=== PATIENT | male | born 1975 | race Caucasian/White ===

== ENCOUNTER 2016-09-27 06:56 | Emergency (ER) | payer BC, OTHER ==
[~2016-09-27] VITALS: Ht 193 cm; Wt 108.9 kg
--- NOTE | ~2016-09-27 | EKG ---
[address] [place] [address] ELECTROCARDIOGRAM REPORT Name: HUNTER CHAVARRIA [facility] [id number] Admission: 09/27/16 Attend Phys: Discharge: 09/27/16 Date of : 71 Report #: [id number] THIS REPORT FOR: //name// [facility] ED Test Date: 2016-09-27 Test Time: 08:23:27 Pat Name: HUNTER CHAVARRIA Department: Room: Gender: Welding Technician: oJrdan DONALD : 1975 Requested By: Tashi Young Order Number: [id number] MD: Chester Hernandes Measurements Intervals [place] Rate: 66 P: 30 MO: 157 QRS: -10 QRSD: 83 T: 20 QT: 404 QTc: 424 Interpretive Statements Sinus rhythm Low voltage, precordial leads Compared to ECG 11/13/2015 19:09:34 No significant changes Electronically Signed On 09-27-2016 16:03:10 CDT by Chester Hernandes [email or web address] <ELECTRONICALLY SIGNED> By: Chester Hernandes MD, [facility] 09/27/16 1603 822 2 Chester Hernandes MD, FACC /EPI
[~2016-09-27 06:56] MED LIST: ACETAMINOPHEN325 M1 PO; ALBUTEROL INHAL17 GM IH; AMBIEN PO; ANUCORT-HC25 MG RE; ASPIRIN EC81 M1 PO; ATIVAN1 MG PO; AUGMENTIN 500-1 EACH PO; AZITHROMYCIN 2250 MG PO; AZITHROMYCIN PO; CIPROFLOXACIN500 M1; CIPROFLOXACIN500 M1 PO; CLARITIN10 M2 PO; CLONAZEPAM 1 MG1 M1 PO; DILAUDID 4 MG TA4 M1 PO; DOCUPRENE100 MG; DOXYCYCLINE 10100 M1 PO; FLEXERIL PO; FLOMAX PO; FLOMAX0.4 MG PO; GLUCOPHAGE XR500 MG; GLUCOPHAGE500 MG PO; GLUMETZA500 PO; HUMALOG100 UNIT/2; HYDROCHLOROTH12.5 MG; IBUPROFEN 600600 M1 PO; IBUPROFEN 800800 M1 PO; KEFLEX500 MG; LANTUS SUBQ; LANTUS100 UNIT/M; LORTAB 5 MG/5001 TA1 PO; LORTABELXR PO; METFORMIN HCL500 MG PO; METFORMIN PO; MIRALAX255 GM; NEXIUM40 MG PO; NOHOMEMEDICATIONS; NORCO 10-325 T1 EACH PO; NORCO 5-325 TA1 EACH PO; PENICILLIN VK500 M1 PO; PERCOCET 5-3251 EACH PO; PHENERGAN 25 MG25 M1 PO; POTASSIUM CITRATE; POTASSIUM CITRATE PO; PREDNISONE50 MG PO; PREVALITE PACKE1 PKT; PRILOSEC 20 MG20 MG PO; PRILOSEC20 MG; PROAIR HFA8.5 GM IH; RANITIDINE 150150 MG PO; SERTRALINE HCL50 MG PO; TAMSULOSIN HCL0.4 M1 PO; TAMSULOSIN HCL0.4 MG; TESSALON PERLE100 MG PO; TIZANIDINE HCL4 MG PO; TRILIPIX135 MG PO; VALIUM5 MG PO; VICODIN 5-5001 EACH PO; XANAX 1 MG TABLE1 MG PO; ZOFRAN ODT4 MG PO; ZOFRAN4 MG PO; ZOLOFT PO; ZOLOFT100 MG PO; ZOLOFT50 MG PO; ZPAK PO; [UNRECOGNIZED DRUG - REMARK]
[2016-09-27 07:33] LABS: URINE BILIRUBIN NEGATIVE (Negative); URINE BLOOD NEGATIVE (Negative); URINE COLOR YELLOW; URINE GLUCOSE-RANDOM* 3+ (Negative); URINE KETONES NEGATIVE (Negative); URINE LEUKOCYTES-REFLEX NEGATIVE (Negative); URINE PROTEIN (DIPSTICK) NEGATIVE (Negative); URINE UROBILINOGEN 0.2 E.U./dl (0.2-1.0)
[2016-09-27 07:38] LABS: ABSOLUTE NEUTROPHILS 2.9 thou/uL (1.4-8.2); BASOPHILS 1.1 % (0.0-2.0); EOSINOPHILS 3.6 % (0.0-3.0); HEMATOCRIT 44.6 % (42.0-52.0); HEMOGLOBIN 15.8 gm/dL (14.0-18.0); LYMPHOCYTES 38.6 % (24.0-44.0); MCHC 35.5 g/dL (28.0-37.0); MCV 87.5 fL (80.0-100.0); MONOCYTES 5.8 % (1.0-8.0); PLATELET COUNT 132 thou/uL (150-400); POLYS 50.9 % (36.0-66.0); RDW 12.9 % (10.5-14.5); WBC 5.7 thou/uL (4.0-11.0)
[2016-09-27 07:39] LABS: MANUAL DIFF NO
[2016-09-27 07:48] LABS: ANION GAP 8 mmol/L (7-16); BUN 7 mg/dL (7-18); CALCIUM 8.6 mg/dL (8.5-10.1); CHLORIDE 103 mmol/L (98-107); CO2 26 mmol/L (21-32); CREATININE 1.1 mg/dL (0.7-1.3); GLUCOSE 370 mg/dL (74-106); POTASSIUM 3.6 mmol/L (3.5-5.1); SODIUM 137 mmol/L (136-145)
[2016-09-27 07:57] LABS: ALBUMIN 3.6 g/dL (3.4-5.0); ALKALINE PHOSPHATASE 134 U/L (46-116); MAGNESIUM 1.9 mg/dL (1.8-2.4); NT-PRO BRAIN NAT PEPTIDE 134 pg/mL (<300); SGOT 14 U/L (15-37); SGPT 37 U/L (30-65); TOTAL BILIRUBIN 0.3 mg/dL (<0.1-1.0); TROPONIN-I < 0.04 ng/mL (<0.04-0.07)
[2016-09-27] MEDS ORDERED: ZOFRAN ODT8 MG PO (08:17)
[2016-09-27] MEDS ORDERED: TORADOL 10 MG T10 MG PO (08:17)
[2016-09-27] MEDS ORDERED: FLOMAX0.4 MG PO (08:17)
[2016-09-27] MEDS ORDERED: NORCO 5-325 TA1 EACH PO (08:17)
== END 2016-09-27 09:09 | disposition home or self-care (01) ==
LOC: ER 06:56
PROVIDERS: Emergency Medicine
DX: R10.31 Right lower quadrant pain (principal); R11.2 Nausea with vomiting, unspecified; E11.9 Type 2 diabetes mellitus without complications; F17.210 Nicotine dependence, cigarettes, uncomplicated; Z87.442 Personal history of urinary calculi; Z90.49 Acquired absence of other specified parts of digestive tract; Z90.89 Acquired absence of other organs; Z88.6 Allergy status to analgesic agent; Z79.4 Long term (current) use of insulin

== ENCOUNTER 2016-09-30 18:53 | Inpatient (IN) | payer OTHER ==
[~2016-09-30] VITALS: Ht 182.9 cm; Wt 105.2 kg
--- NOTE | ~2016-09-30 | HPC ---
[facility] [place] [address] PAIN MANAGEMENT CONSULTATION Name: HUNTER CHAVARRIA Room #: 417-I [facility] IN M.R.#: [id number] Admission: 09/30/16 Attend Phys: Alexandre Kurtz DO Discharge: 10/02/16 Date of : 71 Report #: [id number] THIS REPORT FOR: //name// CC: LYLE physician/PCP Alexandre Kurtz DATE OF SERVICE: 10/02/2016 SUBJECTIVE: The patient is a pleasant 41-year-old gentleman who was admitted to [facility] 09/20/2016 through the ER with acute onset of pain of right testicle. The patient had a prior history of renal lithiasis, had actually been in the ER for right flank pain some 3 days prior. This pain was vastly different, acute onset of pain in the right testicle without antecedent trauma. Extensive workup in the hospital has failed to reveal any treatable pathology. The patient has had A history of renal lithiasis, requiring ureteral stenting x 2 and lithotripsy x 2; history of ureteral stricture. Ultrasound of the testicle reveals the right testicle notes normal scrotal ultrasound. CT of the abdomen and pelvis notes no acute processes. Kidneys, ureters, and urinary bladder were stable with persistent 5 mm nonobstructing stone in the left kidney. Again, this is contralateral to the right testicular pain site. KUB shows nonspecific findings, normal bowel pattern without obstruction, and clips in the gallbladder fossa. Chemistry notes only hyperglycemia. EGFR is 82. White blood cell count is within normal limits at 6.2. Urinalysis does show some spilled glucose, 1+ blood, 3-10 rbc's, no wbc's, and no crystals or casts. The patient has been utilizing IV hydromorphone for pain in the hospital. The patient presents to pain clinic today as an inpatient. PHYSICAL EXAMINATION: VITAL SIGNS: He is a 183 cm tall, 105 kg gentleman. BMI is 31.5 kilograms per meter squared. Blood pressure is 121/66, pulse is 67 and afebrile. GENITOURINARY: The pain is in the right testicle. It is fairly localized. Notes the pain is exacerbated with touch and movement. Some relief with ice and opiate analgesics. No radicular pattern pain. Scrotal area exam is otherwise unremarkable other than exquisite tenderness in the right testicle. He does have tenderness over the right genitofemoral nerve. The ilioinguinal area medial and inferior to the anterior superior iliac spine on the right side is actually unremarkable. EXTREMITIES: Lower extremity strength is preserved. Physical exam is actually relatively unremarkable otherwise. NEUROLOGIC: Cranial nerves 2-12 are grossly intact. Pupils are equal and reactive to light and accommodation. Extraocular muscles are intact. [address] [address] PAIN MANAGEMENT CONSULTATION Name: HUNTER CHAVARRIA Room #: 417-I [facility] IN M.R.#: [id number] Admission: 09/30/16 Attend Phys: Alexandre Kurtz DO Discharge: 10/02/16 Date of : 71 Report #: [id number] MUSCULOSKELETAL: Gait is tandem, though he is a little cautious as movement of the right leg contacting the testicles does cause some pain. ASSESSMENT: Neuropathic pain; genitofemoral neuralgia; right testicular pain in a gentleman with diabetes, relatively poorly controlled; and history of renal lithiasis. RECOMMENDATIONS: Discussion with the patient and his today about therapeutic options. We have elected to proceed with a right genitofemoral nerve block. I have taken the liberty of giving the patient samples of Lyrica 50 mg to start 1 at night for 3 nights and then b.i.d. with subsequent prescription for 60 of the 50 mg tablet. If the nerve block does not afford ongoing relief, start the Lyrica, and I will be happy to see him in about 3-4 weeks for reevaluation. I did give him a short prescription for hydromorphone to wean as an outpatient, 2 mg tablets 1-2 tablets 3 times a day, limit 30 tablets. PROCEDURE NOTE: Right genitofemoral nerve block. DESCRIPTION OF PROCEDURE: After written informed consent was obtained, the patient was placed in supine position. Skin overlying the pubic tubercle was cleansed with alcohol. A 2 inch 25-gauge needle was then inserted right paramedian to the superior aspect of the right pubic tubercle, and in a fan-like fashion, 20 mg triamcinolone plus 3 mL of 0.5% preservative-free bupivacaine plus 3 mL of 1.5% preservative-free Xylocaine with 1:200,000 epinephrine was injected in the fan-like fashion. The needle was removed. The area was cleansed, Band-Aids applied. The patient monitored for an appropriate period of time, discharged in good and stable condition, noting significant improvement of baseline pain. In fact, noted his pain was fairly nominal, perhaps 2 on a 0-10 visual analog scale. We will see the patient back on an as-needed basis. Told to use ice to the area today. Report to the pain clinic if he develops any signs of infection, bleeding, hematuria or increased pain. <ELECTRONICALLY SIGNED> By: Caleb Maldonado DO 10/05/16 0856 [id number] [id number] Caleb Maldonado DO /daniel
--- NOTE | ~2016-09-30 | HC ---
[facility] [place] [address] CONSULTATION Name: HUNTER CHAVARRIA Room #: 417-I [facility] IN M.R.#: [id number] Admission: 09/30/16 Attend Phys: Alexandre Kurtz DO Discharge: 10/02/16 Date of : 71 Report #: [id number] THIS REPORT FOR: //name// CC: LYLE physician/PCP Alexandre Kurtz DATE OF SERVICE: 10/02/2016 SUBJECTIVE: The patient is having less pain in the right testicle, satisfactory bowel function. OBJECTIVE: Nontender in the right inguinal canal, nontender in the abdomen. LABORATORY DATA: Review of the CT scan with Radiology demonstrates no evidence of a right inguinal hernia or left inguinal hernia. Etiology of right testicular pain is unclear. ASSESSMENT: No evidence of a right inguinal hernia. PLAN: No surgical procedure indicated. Consultation with pain management today. Follow up with his long-term urologist and Robby Baca. <ELECTRONICALLY SIGNED> By: Adolfo Fountain MD, FACS 10/05/16 1720 1700 194 Adolfo Fountain MD, FACS /nt
--- NOTE | ~2016-09-30 | HC ---
[facility] [place] [address] CONSULTATION Name: HUNTER CHAVARRIA Room #: 417-I [facility] IN ..#: [id number] Admission: 09/30/16 Attend Phys: Alexandre Kurtz DO Discharge: 10/02/16 Date of : 71 Report #: [id number] THIS REPORT FOR: //name// CC: LYLE physician/PCP Alexandre Kurtz DATE OF SERVICE: 10/01/2016 HISTORY OF PRESENT ILLNESS: I have been asked to evaluate this 41-year-old male who has presented to emergency room and been hospitalized for right testicular pain. The right testicular pain began the day prior to admission around lunch time. The patient felt pain was sudden in onset, severe and gave him nausea. He had been seen in the emergency department approximately 3 days prior to that for a kidney stone which has resolved. The patient has not had similar right testicular pain of this type before. He has known right renal cyst and history of nephrolithiasis in the past. He denied hematuria and flank pain and the evaluation and concern was possibility of an inguinal hernia after urological consultation did not reveal any testicular torsion. An ultrasound did not reveal torsion either. He denies any change in gastrointestinal function. PAST MEDICAL HISTORY: Consistent with previous cholelithiasis, kidney stones, diverticulosis, GERD. PAST SURGICAL HISTORY: Tonsillectomy, laparoscopic cholecystectomy, fasciotomy right leg, crush injury, ureteral stents and left shoulder surgery. ALLERGIES: ASPIRIN and MILK. MEDICATIONS: Included ketorolac, Zofran, [place] and Flomax. SOCIAL HISTORY: The patient is , smokes on a daily basis, [id number] history of cigarette smoking, alcohol on special occasions. REVIEW OF SYSTEMS: A 10-point review of systems essentially noncontributory except for recent and acute onset of right testicular pain without dysuria, frequency or recent trauma. PHYSICAL EXAMINATION: GENERAL: Reveals a patient who is cooperative, alert. HEENT: Pupils equal, round, react to light. Extraocular movements within normal limits. NECK: Full range of motion. LUNGS: Clear to bases bilaterally. CARDIOVASCULAR: Regular rate and rhythm. ABDOMEN: Nontender. Some right testicular pain. The patient examined in the standing position, demonstrates no evidence of a hernia, right or left. [facility] [address] [place] [address] CONSULTATION Name: HUNTER CHAVARRIA Room #: 417-I [facility] IN ..#: [id number] Admission: 09/30/16 Attend Phys: Alexandre Kurtz DO Discharge: 10/02/16 Date of : 71 Report #: [id number] palpable defect in the right inguinal canal is present. NEUROLOGIC: He is oriented x 3 with bilateral motor symmetry. Review of laboratory demonstrates labs within normal limits. A CT scan of the abdomen and pelvis does not delineate any inguinal hernia, ____ tight and without evidence of fat containing mass or bowel in the right inguinal canal or the left inguinal canal. Right testis is well distended in the scrotum. By CT scan, small 1 cm hydrocele of the right testis. DIAGNOSTIC IMPRESSION: The patient does not have an acute abdomen. He does not have right inguinal hernia as the etiology or source of his right testicular pain. Recommend further urological evaluation and pain management evaluation. Thank you for allowing us to participate in his care. <ELECTRONICALLY SIGNED> By: Adolfo Fountain MD, FACS 10/05/16 1720 1645 2118 Adolfo Fountain MD, FACS /nt
[2016-09-30 18:53] VITALS: BP 147/92
[~2016-09-30 18:53] MED LIST changes: +TORADOL 10 MG T10 MG PO; +ZOFRAN ODT8 MG PO
[2016-09-30 19:49] LABS: URINE BILIRUBIN NEGATIVE (Negative); URINE BLOOD NEGATIVE (Negative); URINE COLOR YELLOW; URINE GLUCOSE-RANDOM* 3+ (Negative); URINE KETONES NEGATIVE (Negative); URINE LEUKOCYTES-REFLEX NEGATIVE (Negative); URINE PROTEIN (DIPSTICK) NEGATIVE (Negative); URINE UROBILINOGEN 0.2 E.U./dl (0.2-1.0)
[2016-09-30 21:34] LABS: ABSOLUTE NEUTROPHILS 4.1 thou/uL (1.4-8.2); EOSINOPHILS 2.3 % (0.0-3.0); HEMATOCRIT 45.4 % (42.0-52.0); HEMOGLOBIN 15.7 gm/dL (14.0-18.0); LYMPHOCYTES 34.3 % (24.0-44.0); MCH 30.8 pg (26.0-34.0); MCHC 34.6 g/dL (28.0-37.0); MONOCYTES 4.5 % (1.0-8.0); PLATELET COUNT 139 thou/uL (150-400); POLYS 57.9 % (36.0-66.0); RDW 13.1 % (10.5-14.5)
[2016-09-30 21:35] LABS: MANUAL DIFF NO
[2016-09-30 21:50] LABS: CALCIUM 8.7 mg/dL (8.5-10.1); POTASSIUM 3.5 mmol/L (3.5-5.1)
[2016-09-30 21:54] LABS: ALBUMIN 3.7 g/dL (3.4-5.0); TOTAL BILIRUBIN 0.4 mg/dL (<0.1-1.0); TOTAL PROTEIN 7.4 g/dL (6.4-8.2)
[2016-09-30] MEDS ORDERED: PRILOSEC 20 MG20 MG PO (22:03)
[2016-09-30 22:22] VITALS: BP 135/89
[2016-10-01 03:35] VITALS: BP 130/83
[2016-10-01 08:18] VITALS: BP 132/91
[2016-10-01 15:44] VITALS: BP 152/80
[2016-10-01 20:00] VITALS: BP 134/83
[2016-10-01 21:10] LABS: URINE BILIRUBIN NEGATIVE (Negative); URINE BLOOD 3+ (Negative); URINE COLOR YELLOW; URINE GLUCOSE-RANDOM* 3+ (Negative); URINE KETONES NEGATIVE (Negative); URINE LEUKOCYTES-REFLEX NEGATIVE (Negative); URINE PROTEIN (DIPSTICK) NEGATIVE (Negative); URINE UROBILINOGEN 0.2 E.U./dl (0.2-1.0)
[2016-10-01 21:21] LABS: URINE RBC 3-10 Few /HPF (0-2)
[2016-10-01 21:22] LABS: CASTS None Seen /LPF (None Seen); CRYSTALS None Seen /LPF (None Seen); SQUAMOUS 0-3 Few /LPF (0-3); URINE WBC-REFLEX None Seen /HPF (0-5)
[2016-10-02 03:16] LABS: GLYCOHEMOGLOBIN (HGB A1C) 9.5 % (4.8-5.6)
[2016-10-02 03:50] LABS: ABSOLUTE NEUTROPHILS 3.4 thou/uL (1.4-8.2); BASOPHILS 0.6 % (0.0-2.0); EOSINOPHILS 2.7 % (0.0-3.0); HEMATOCRIT 39.2 % (42.0-52.0); LYMPHOCYTES 37.6 % (24.0-44.0); MCH 31.2 pg (26.0-34.0); MCHC 34.8 g/dL (28.0-37.0); MCV 89.8 fL (80.0-100.0); MONOCYTES 4.9 % (1.0-8.0); PLATELET COUNT 117 thou/uL (150-400); POLYS 54.2 % (36.0-66.0); RBC 4.36 mil/uL (4.50-6.00); RDW 13.4 % (10.5-14.5); WBC 6.2 thou/uL (4.0-11.0)
[2016-10-02 03:56] LABS: HEMOGLOBIN 13.6 gm/dL (14.0-18.0)
[2016-10-02 03:57] LABS: MANUAL DIFF NO
[2016-10-02 03:59] LABS: CALCIUM 8.1 mg/dL (8.5-10.1); POTASSIUM 3.9 mmol/L (3.5-5.1)
[2016-10-02 04:00] VITALS: BP 121/66
[2016-10-02 07:14] VITALS: BP 131/75
[2016-10-02] MEDS ORDERED: NORCO 5-325 TA1 EACH PO (10:13)
[2016-10-02 14:19] VITALS: BP 131/75
== END 2016-10-02 15:16 | disposition home or self-care (01) | DRG 730 ==
LOC: ER 18:53 → 4E 21:06 → EROBS 21:06 → 4E 21:46
PROVIDERS: Family Medicine; Nurse Practitioner Acute Care; Physician Assistant
PROC: 3E0T33Z Introduction of Anti-inflammatory into Peripheral Nerves and Plexi, Percutaneous Approach (ICD-10-PCS; principal; 2016-10-02)
PROC: 3E0T3BZ Introduction of Anesthetic Agent into Peripheral Nerves and Plexi, Percutaneous Approach (ICD-10-PCS; principal; 2016-10-02)
DX: N50.811 Right testicular pain (principal); E11.65 Type 2 diabetes mellitus with hyperglycemia; K57.90 Diverticulosis of intestine, part unspecified, without perforation or abscess without bleeding; F17.210 Nicotine dependence, cigarettes, uncomplicated; K21.9 Gastro-esophageal reflux disease without esophagitis; M79.2 Neuralgia and neuritis, unspecified; Z91.011 Allergy to milk products; Z87.442 Personal history of urinary calculi; Z80.42 Family history of malignant neoplasm of prostate; Z79.899 Other long term (current) drug therapy; Z88.6 Allergy status to analgesic agent; Z79.4 Long term (current) use of insulin; Z90.49 Acquired absence of other specified parts of digestive tract; Z82.49 Family history of ischemic heart disease and other diseases of the circulatory system
CPT/HCPCS: 10084